=== PATIENT | female | born 1960 | race Asian ===

== ENCOUNTER 2018-11-03 20:45 | Emergency (ER) | payer OTHER ==
[2018-11-03] MEDS: DIPHTH/TET/ACEL PERTUSS (ADULT) 0.5 ML VIAL IM* (21:11)
[2018-11-03] MEDS: TETRACAINE 0.5% 4 ML OPH LEFT EYE (21:52)
[2018-11-03] MEDS: FLUORESCEIN STRIP LEFT EYE (21:52)
[2018-11-03] MEDS: SODIUM CHLORIDE 0.9% 1L IRRIG IRR (21:53)
[2018-11-03] MEDS: IBUPROFEN 600 MG TAB PO (22:15)
== END 2018-11-03 22:22 | disposition home or self-care (01) ==
LOC: E/R 20:45
DX: T26.42XA Burn of left eye and adnexa, part unspecified, initial encounter (principal); T26.62XA Corrosion of cornea and conjunctival sac, left eye, initial encounter; T65.891A Toxic effect of other specified substances, accidental (unintentional), initial encounter; I10 Essential (primary) hypertension; T20.14XA Burn of first degree of nose (septum), initial encounter; T20.16XA Burn of first degree of forehead and cheek, initial encounter; E11.9 Type 2 diabetes mellitus without complications; X10.2XXA Contact with fats and cooking oils, initial encounter; Y92.9 Unspecified place or not applicable; Z23 Encounter for immunization
CPT/HCPCS: 90471; 90715; 99283-25